=== PATIENT | female | born 1990 | race Caucasian/White ===

== ENCOUNTER 2019-04-22 10:22 | Emergency (ER) | payer OTHER ==
[~2019-04-22] VITALS: Ht 160 cm; Wt 78.9 kg
[2019-04-22] MEDS ORDERED: OSEL75CA PO (16:10)
[2019-04-22] MEDS ORDERED: KETO10TA2 PO (16:10)
[2019-04-22] MEDS ORDERED: TESSALON PERLE100 MG PO (16:10)
[2019-04-22] MEDS ORDERED: MUCINEX DM ER1 EAC1 PO (16:10)
[2019-04-22] MEDS ORDERED: AIRBORNE EFFER1 EACH PO (16:10)
[2019-04-22] MEDS ORDERED: MAPAP500 MG (16:13)
== END 2019-04-22 16:23 ==
LOC: ER 10:22
DX: J09.X2 Influenza due to identified novel influenza A virus with other respiratory manifestations (principal)

== ENCOUNTER 2021-09-09 07:39 | Emergency (ER) | payer OTHER ==
[~2021-09-09] VITALS: Ht 160 cm; Wt 80.7 kg
[~2021-09-09 07:39] MED LIST: AIRBORNE EFFER1 EACH PO; KETO10TA2 PO; MAPAP500 MG; MUCINEX DM ER1 EAC1 PO; OSEL75CA PO; TESSALON PERLE100 MG PO
== END 2021-09-09 09:07 | disposition home or self-care (01) ==
LOC: ER 07:39
DX: M54.50 Low back pain, unspecified (principal)

== ENCOUNTER 2025-02-14 08:37 | Emergency (ER) | payer OTHER ==
[~2025-02-14] VITALS: Ht 160 cm; Wt 81.6 kg
[2025-02-14] MEDS ORDERED: ZYRTEC10 M3 PO (08:46)
[2025-02-14] MEDS ORDERED: AMOX TR-K250 MG/5 M (08:46)
[2025-02-14] MEDS ORDERED: CENTANY30 GM (08:46)
[2025-02-14] MEDS ORDERED: TRIAMCINOLONE A15 G4 (08:46)
[2025-02-14] MEDS ORDERED: CLINDAMYCIN PHOSPHATE 150 MG/ML (600mg) IV ONE (09:15)
[2025-02-14 09:33] LABS: BASO % 1.0 % (0.1-1.2); EOS # 0.48 (0.04-0.54); EOS % 7.9 % (0.7-7.0); LYMPH # 1.64 (1.18-3.74); LYMPH % 27.0 % (19.3-53.1); MEAN PLATELET VOLUME 11.00 fl (9.4-12.4); MONO # 0.41 (0.24-0.82); MONO % 6.8 % (4.7-12.5); NEUT # 3.47 (1.56-6.13); NEUT % 57.1 % (34.0-71.1); RED CELL DISTRIBUTION WIDTH 12.4 % (11.6-14.4)
[2025-02-14 09:50] LABS: BUN CREA RATIO 17.0 (7.0-25.0); CREATININE SERUM 0.58 mg/dL (0.55-1.02); GFR 119.0; GLUCOSE FASTING 102.0 mg/dL (65-100); OSMOLALITY SERUM 275.0 MOSM/KG (275-295)
[2025-02-14 10:03] LABS: URINE APPEARANCE Clear; URINE BILIRRUBIN Negative (NEGATIVE); URINE BLOOD Negative; URINE COLOR Yellow; URINE GLUCOSE Negative (NEGATIVE); URINE KETONE Negative (NEGATIVE); URINE LEUKOCYTE Small; URINE NITRATE Negative; URINE PROTEIN Negative (NEGATIVE); URINE UROBILINOGEN 0.2 E.U./dl
[2025-02-14 10:06] LABS: URINE BACTERIA 506.2 uL (0.0-1933); URINE EPITHELIAL CELLS 44.4 uL (0.0-38.8); URINE RBC 5.8 uL (0.0-20.8); URINE WBC 35.2 uL (0.0-23.2)
[2025-02-14 10:09] LABS: URINE CAST 0.00 uL (0.0-1.40)
== END 2025-02-14 13:03 | disposition home or self-care (01) ==
LOC: ER 08:37
PROVIDERS: Emergency Medicine
DX: L03.112 Cellulitis of left axilla (principal); R21 Rash and other nonspecific skin eruption
CPT/HCPCS: 36415; 96365; 99282; J3490